=== PATIENT | male | born 1950 | race Caucasian/White ===

== ENCOUNTER 2022-07-13 11:21 | Observation (INO) | payer OTHER ==
[2022-07-08 11:46] LABS: BASOPHILS % (AUTO) 1.2 % (0.0-5.0); EOSINOPHILS % (AUTO) 4.5 % (0.0-8.0); HEMATOCRIT 46.4 % (42-54); LYMPHOCYTES % (AUTO) 23.5 % (21.0-51.0); MEAN CORPUSCULAR HGB CONC 33.4 g/dL (32.0-36.0); MEAN CORPUSCULAR VOLUME 89.7 fL (79-99); MONOCYTES % (AUTO) 8.9 % (3.0-13.0); NEUTROPHILS % (AUTO) 61.4 % (40.0-77.0); PLATELET COUNT (AUTO) 190 K/uL (130-400); RED BLOOD CELL COUNT(AUTO) 5.17 MIL/uL (4.50-6.20); RED CELL DISTRIBUTION WIDTH 13.3 % (11.0-15.5); WHITE BLOOD COUNT (AUTO) 6.5 K/uL (4.8-10.8)
[2022-07-08 11:52] LABS: CREATININE 1.2 mg/dL (0.5-1.5); POTASSIUM 5.1 mmol/L (3.5-5.1)
[2022-07-08 11:56] LABS: INR 1.01 (0.85-1.15)
[2022-07-08 11:58] LABS: PARTIAL THROMBOPLASTIN TIME 32.6 SEC (26.3-35.5)
[2022-07-12 09:11] VITALS: BP 146/82
[2022-07-13] VITALS (20 sets, daily range): BP systolic 115–181; BP diastolic 72–106
[~2022-07-13] VITALS: Ht 175.3 cm; Wt 87.5 kg
[~2022-07-13 11:21] MED LIST: 0.9%NACL 1000ML 1,000 ML IV SCH; APIX5TAB PO; ASCO500C18 PO; ATOR40TA71 PO; CHOL100046 PO; IRBE300T18 PO; SELE200T27 PO
[2022-07-13] MEDS ORDERED: MIDAZOLAM HCL 1 MG/ML 2ML VIAL ONE (12:24)
[2022-07-13] MEDS ORDERED: FENTANYL CITRATE PF 50 MCG/1 ML 2ML VIAL ONE (12:25)
[2022-07-13] MEDS ORDERED: LIDOCAINE HCL 2% VISCOUS 15 ML UDCUP ONE (12:26)
[2022-07-13] MEDS ORDERED: NALOXONE HCL 0.4 MG/1 ML ML ONE (12:33)
[2022-07-13] MEDS ORDERED: FLUMAZENIL 0.1MG/1ML 5ML VIAL IV ONE (12:36)
[2022-07-13] MEDS ORDERED: IPRATROPIUM/ALBUTEROL SULFATE 3 ML SOLUTION IH PRN (16:00)
[2022-07-13 17:43] LABS: EOSINOPHILS % (AUTO) 3.4 % (0.0-8.0); HEMATOCRIT 44.5 % (42-54); LYMPHOCYTES % (AUTO) 24.3 % (21.0-51.0); MEAN CORPUSCULAR HEMOGLOBIN 30.1 pg (27.0-33.0); MEAN CORPUSCULAR HGB CONC 34.4 g/dL (32.0-36.0); MEAN CORPUSCULAR VOLUME 87.6 fL (79-99); MONOCYTES % (AUTO) 6.6 % (3.0-13.0); NEUTROPHILS % (AUTO) 64.6 % (40.0-77.0); PLATELET COUNT (AUTO) 179 K/uL (130-400); RED BLOOD CELL COUNT(AUTO) 5.08 MIL/uL (4.50-6.20); RED CELL DISTRIBUTION WIDTH 12.9 % (11.0-15.5); WHITE BLOOD COUNT (AUTO) 6.7 K/uL (4.8-10.8)
[2022-07-13 18:10] LABS: ALBUMIN 3.4 g/dL (3.5-5.0); CREATININE 1.2 mg/dL (0.5-1.5); MAGNESIUM 1.5 mg/dL (1.80-2.40); POTASSIUM 3.9 mmol/L (3.5-5.1); THYROID STIMULATING HORMONE 1.67 uIU/mL (0.36-3.74); TOTAL PROTEIN, SERUM 6.5 g/dL (6.0-8.3)
[2022-07-13] MEDS ORDERED: MAGNESIUM 2GM PREMIX 50ML 50 ML IV SCH (19:00)
[2022-07-13] MEDS: APIXABAN 5 MG TABLET PO SCH (21:46)
[2022-07-13] MEDS: ATORVASTATIN 40 MG TABLET PO SCH (21:46)
[2022-07-14 00:03] VITALS: BP 112/66
[2022-07-14 03:03] VITALS: BP 107/61
[2022-07-14 03:51] LABS: BASOPHILS % (AUTO) 0.8 % (0.0-5.0); EOSINOPHILS % (AUTO) 2.3 % (0.0-8.0); HEMATOCRIT 44.9 % (42-54); LYMPHOCYTES % (AUTO) 15.5 % (21.0-51.0); MEAN CORPUSCULAR HEMOGLOBIN 30.3 pg (27.0-33.0); MEAN CORPUSCULAR HGB CONC 34.7 g/dL (32.0-36.0); MEAN CORPUSCULAR VOLUME 87.2 fL (79-99); MONOCYTES % (AUTO) 6.6 % (3.0-13.0); NEUTROPHILS % (AUTO) 74.5 % (40.0-77.0); PLATELET COUNT (AUTO) 199 K/uL (130-400); RED BLOOD CELL COUNT(AUTO) 5.15 MIL/uL (4.50-6.20); RED CELL DISTRIBUTION WIDTH 13.1 % (11.0-15.5); WHITE BLOOD COUNT (AUTO) 9.1 K/uL (4.8-10.8)
[2022-07-14 04:03] LABS: CREATININE 1.1 mg/dL (0.5-1.5); MAGNESIUM 1.9 mg/dL (1.80-2.40); POTASSIUM 4.1 mmol/L (3.5-5.1)
[2022-07-14 07:47] VITALS: BP 134/88
[2022-07-14] MEDS ORDERED: SELENOMETHIONINE 200 MCG PO SCH (09:00)
[2022-07-14] MEDS ORDERED: NON-FORMULARY MEDICATION 1 EACH (Cholecalciferol (Vitamin D3) (Vitamin D3) 25 MCG) PO SCH (09:00)
[2022-07-14] MEDS ORDERED: IRBESARTAN 300 MG PO SCH (09:00)
[2022-07-14] MEDS: CHOLECALCIFEROL 25 MCG PO SCH (09:00)
[2022-07-14] MEDS: IRBESARTAN 300MG PO SCH (09:00)
[2022-07-14] MEDS ORDERED: NON-FORMULARY MEDICATION 1 EACH (Ascorbic Acid (Vitamin C) 500 MG) PO SCH (09:00)
[2022-07-14] MEDS: SELENOMETHIONINE 200 MCG PO SCH (09:00)
[2022-07-14] MEDS: PANTOPRAZOLE 40 MG TAB DR PO SCH (09:21)
[2022-07-14] MEDS: APIXABAN 5 MG TABLET PO SCH ×2 (09:22→21:04)
[2022-07-14] MEDS: ASCORBIC ACID 500 MG TAB PO SCH (09:22)
[2022-07-14] MEDS: DRONEDARONE HYDROCHLORIDE 400 MG TABLET PO SCH ×2 (10:19→21:04)
[2022-07-14 11:46] VITALS: BP 148/90
[2022-07-14 16:12] VITALS: BP 130/92
[2022-07-14 16:21] LABS: CREATININE 1.2 mg/dL (0.5-1.5); POTASSIUM 3.9 mmol/L (3.5-5.1)
[2022-07-14] MEDS ORDERED: ACETAMINOPHEN 325 MG TAB PO PRN (16:30)
[2022-07-14 20:26] VITALS: BP 139/79
[2022-07-14] MEDS: ATORVASTATIN 40 MG TABLET PO SCH (21:04)
[2022-07-15 00:03] VITALS: BP 123/75
[2022-07-15 04:13] VITALS: BP 112/69
[2022-07-15 04:37] LABS: BASOPHILS % (AUTO) 0.9 % (0.0-5.0); EOSINOPHILS % (AUTO) 3.1 % (0.0-8.0); LYMPHOCYTES % (AUTO) 23.5 % (21.0-51.0); MEAN CORPUSCULAR HEMOGLOBIN 29.9 pg (27.0-33.0); MEAN CORPUSCULAR HGB CONC 34.3 g/dL (32.0-36.0); MEAN CORPUSCULAR VOLUME 87.4 fL (79-99); MONOCYTES % (AUTO) 8.3 % (3.0-13.0); NEUTROPHILS % (AUTO) 63.8 % (40.0-77.0); PLATELET COUNT (AUTO) 199 K/uL (130-400); RED BLOOD CELL COUNT(AUTO) 5.38 MIL/uL (4.50-6.20); RED CELL DISTRIBUTION WIDTH 13.2 % (11.0-15.5); WHITE BLOOD COUNT (AUTO) 7.8 K/uL (4.8-10.8)
[2022-07-15 04:51] LABS: ALBUMIN 3.4 g/dL (3.5-5.0); CREATININE 1.5 mg/dL (0.5-1.5); MAGNESIUM 1.9 mg/dL (1.80-2.40); POTASSIUM 3.9 mmol/L (3.5-5.1); TOTAL PROTEIN, SERUM 6.6 g/dL (6.0-8.3)
[2022-07-15 07:30] VITALS: BP 112/79
[2022-07-15] MEDS: ASCORBIC ACID 500 MG TAB PO SCH (08:27)
[2022-07-15] MEDS: PANTOPRAZOLE 40 MG TAB DR PO SCH (08:27)
[2022-07-15] MEDS: IRBESARTAN 300MG PO SCH (08:27)
[2022-07-15] MEDS: SELENOMETHIONINE 200 MCG PO SCH (08:27)
[2022-07-15] MEDS: CHOLECALCIFEROL 25 MCG PO SCH (08:27)
[2022-07-15] MEDS: DRONEDARONE HYDROCHLORIDE 400 MG TABLET PO SCH ×2 (08:32→14:26)
[2022-07-15] MEDS: APIXABAN 5 MG TABLET PO SCH (08:33)
[2022-07-15 11:30] VITALS: BP 116/75
[2022-07-15] MEDS ORDERED: DRON400T7 PO (12:32)
[2022-08-23] MEDS ORDERED: DRON400T7 PO (11:45)
== END 2022-07-15 15:25 | disposition home or self-care (01) ==
LOC: DAH 11:21 → INTOOBSV 11:22 → DAHIP 11:22 → DAH 11:22 → 2AH 14:36
PROVIDERS: ADMIT Hospitalist; ATTEND Hospitalist
DX: I48.0 Paroxysmal atrial fibrillation (principal); I11.0 Hypertensive heart disease with heart failure; I50.32 Chronic diastolic (congestive) heart failure; I25.10 Atherosclerotic heart disease of native coronary artery without angina pectoris; I34.0 Nonrheumatic mitral (valve) insufficiency; I48.19 Other persistent atrial fibrillation; Q21.12 Patent foramen ovale; I25.2 Old myocardial infarction; E83.42 Hypomagnesemia; E78.5 Hyperlipidemia, unspecified; Z79.01 Long term (current) use of anticoagulants; Z90.49 Acquired absence of other specified parts of digestive tract; Z95.5 Presence of coronary angioplasty implant and graft; Z79.899 Other long term (current) drug therapy; Z98.890 Other specified postprocedural states
CPT/HCPCS: 80048 ×3; 85025 ×4; 85610; 85730; 36415 ×4; 93005; 92960 ×2; 96365; 96366; 84443; 83735 ×3; 80053 ×2; 93312; 94664; 93306; 93356; G0378 ×46; J3475; J3010; J7030 ×3; J2250; A4615; A4215; A4223 ×3; A4554; A4657; A7002; A4222; A4221; A4663; A4216; A4606; 96374; J2310; J3490

== ENCOUNTER → 2022-08-17 | Outpatient (CLI) | payer OTHER ==
[~2022-08-17] MED LIST changes: -0.9%NACL 1000ML 1,000 ML IV SCH; +DRON400T7 PO; +IOHEXOL 350 MG/ML 100ML INFUS..BTL IV ONE
== END | disposition home or self-care (01) ==
LOC: RAH 09:38
PROVIDERS: ATTEND Internal Medicine Cardiovascular Disease
DX: I48.19 Other persistent atrial fibrillation (principal)
CPT/HCPCS: 71275; Q9967

== ENCOUNTER 2022-08-24 05:50 | Observation (INO) | payer OTHER ==
[2022-08-20 14:06] LABS: BASOPHILS % (AUTO) 1.1 % (0.0-5.0); EOSINOPHILS % (AUTO) 6.8 % (0.0-8.0); HEMATOCRIT 46.3 % (42-54); LYMPHOCYTES % (AUTO) 22.9 % (21.0-51.0); MEAN CORPUSCULAR HEMOGLOBIN 29.5 pg (27.0-33.0); MEAN CORPUSCULAR HGB CONC 33.5 g/dL (32.0-36.0); MONOCYTES % (AUTO) 5.9 % (3.0-13.0); NEUTROPHILS % (AUTO) 62.8 % (40.0-77.0); PLATELET COUNT (AUTO) 214 K/uL (130-400); RED BLOOD CELL COUNT(AUTO) 5.26 MIL/uL (4.50-6.20); RED CELL DISTRIBUTION WIDTH 13.2 % (11.0-15.5); WHITE BLOOD COUNT (AUTO) 6.7 K/uL (4.8-10.8)
[2022-08-20 14:22] LABS: INR 1.03 (0.85-1.15); PROTHROMBIN TIME 11.2 SEC (9.6-11.6)
[2022-08-20 14:24] LABS: PARTIAL THROMBOPLASTIN TIME 32.5 SEC (26.3-35.5)
[2022-08-20 14:27] LABS: CREATININE 1.4 mg/dL (0.5-1.5); POTASSIUM 4.8 mmol/L (3.5-5.1)
[2022-08-23 11:29] VITALS: BP 131/80
[~2022-08-24] VITALS: Ht 175.3 cm; Wt 94.3 kg
[2022-08-24] VITALS (21 sets, daily range): BP systolic 114–153; BP diastolic 59–86
[~2022-08-24 05:50] MED LIST changes: +FENTANYL CITRATE PF 50 MCG/1 ML 2ML VIAL ONE; +GLYCOPYRROLATE 0.2 MG/ML 5 ML VIAL ONE; -IOHEXOL 350 MG/ML 100ML INFUS..BTL IV ONE; +LIDOCAINE HCL-MPF 1% 2ML VIAL ONE; +NEOSTIGMINE 5MG/5ML SYR IV ONE; +PHENYLEPHRINE HCL 10 MG/ML 1ML VIAL IV ONE; +PROPOFOL 10 MG/ML 20ML VIAL IV ONE; +ROCURONIUM BROMIDE 10MG/1ML 5ML VL ONE; -SELE200T27 PO; +SUCCINYLCHOLINE CHLORIDE 20 MG/ML 10 ML VIAL ONE
[2022-08-24] MEDS ORDERED: 0.9%NACL 1000ML 1,000 ML IV ONE (06:24)
[2022-08-24] MEDS ORDERED: HEPARIN 10,000 UNIT/10ML (1,000 UNIT/ML) VIAL ONE ×2 (07:17→08:53)
[2022-08-24] MEDS ORDERED: LIDOCAINE HCL 400MG/20ML VIAL ONE (07:52)
[2022-08-24] MEDS ORDERED: 0.9%NACL 1000ML 1,000 ML IV SCH (08:00)
[2022-08-24] MEDS ORDERED: ONDANSETRON 4MG INJ ONE (08:12)
[2022-08-24] MEDS ORDERED: DEXAMETHASONE SOD PHOSPHATE 4 MG/ML 5ML VIAL ONE (08:12)
[2022-08-24] MEDS ORDERED: ROCURONIUM BROMIDE 10MG/1ML 5ML VL ONE (09:18)
[2022-08-24] MEDS ORDERED: ISOPROTERENOL HCL 0.2 MG/ML AMP/VIAL/BAG ONE (11:25)
[2022-08-24] MEDS ORDERED: PROTAMINE SULFATE 10 MG/ML 25ML VIAL IV ONE (11:43)
[2022-08-24] MEDS ORDERED: PANTOPRAZOLE 40 MG TAB DR PO SCH (14:00)
[2022-08-24] MEDS: SUCRALFATE 1 GM TABLET PO SCH ×2 (14:19→20:53)
[2022-08-24] MEDS: APIXABAN 5 MG TABLET PO SCH ×2 (19:08→19:22)
[2022-08-24] MEDS: DRONEDARONE HYDROCHLORIDE 400 MG TABLET PO SCH (20:53)
[2022-08-24] MEDS ORDERED: ATORVASTATIN 40 MG TABLET PO SCH (21:00)
[2022-08-25 00:04] VITALS: BP 116/67
[2022-08-25] MEDS: SUCRALFATE 1 GM TABLET PO SCH ×2 (02:50→07:25)
[2022-08-25 03:31] VITALS: BP 120/62
[2022-08-25] MEDS ORDERED: APIXABAN 5 MG TABLET PO ONE (07:00)
[2022-08-25 07:26] VITALS: BP 128/71
[2022-08-25] MEDS ORDERED: PANTOPRAZOLE 40 MG TAB DR PO SCH (09:00)
[2022-08-25] MEDS ORDERED: IRBESARTAN 300 MG PO SCH (09:00)
[2022-08-25] MEDS: DRONEDARONE HYDROCHLORIDE 400 MG TABLET PO SCH (09:50)
[2022-08-25] MEDS ORDERED: SUCR1ORA15 PO (10:32)
[2022-08-25] MEDS ORDERED: PANT40TA PO (10:32)
[2022-08-25 11:46] VITALS: BP 111/64
== END 2022-08-25 12:57 | disposition home or self-care (01) ==
LOC: DAH 05:50 → 2AH 05:51
PROVIDERS: ADMIT Internal Medicine Cardiovascular Disease; ATTEND Internal Medicine Cardiovascular Disease
DX: I48.0 Paroxysmal atrial fibrillation (principal); Z20.822 Contact with and (suspected) exposure to COVID-19; I10 Essential (primary) hypertension; E78.5 Hyperlipidemia, unspecified; I25.10 Atherosclerotic heart disease of native coronary artery without angina pectoris; I25.2 Old myocardial infarction; Z79.899 Other long term (current) drug therapy
CPT/HCPCS: 80048; 85025; 85610; 85730; 87426; 36415 ×2; 93005 ×2; 93622; 93623; 93656; 93657; 85347 ×8; A4344; C1894 ×4; C1893; A4215 ×2; C1731 ×2; A4649 ×2; C1732; C1730; G0378 ×25; J3010; J3490 ×6; J2710; J0330; J7030; J2720; J1644 ×4; J2704; J2405; J1100; J2370; A4223 ×3; A4222; A4221; A4663; A4216; A4606; 93613